=== PATIENT | male | born 1985 | race African-American/Black ===

== ENCOUNTER 2019-12-16 20:00 | Emergency (ER) | payer OTHER, SELFPAY ==
[2019-12-16 20:01] VITALS: BP 110/66; PULSE 72; RESP 20; TEMP 37.1; O2SAT 98
--- NOTE | 2019-12-16 22:11 | ED.HEATRA ---
HPI - Head Injury General Chief complaint: Head Injury Stated complaint: head injury Time Seen by Provider: 12/16/19 22:05 History of Present Illness HPI Narrative: Patient presents with his girlfriend for head injury today. He was at work with 2 men in a truck. 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 His girlfriend was worried because it was slightly red. He initially had pain in the site and had the sensation of seeing stars. He had no loss of consciousness. He said his pain is 5 out of 10. He was on his phone when I came into the room. He has no medical problems. His only surgery is circumcision. He denies smoking drinking and drug. Complaint: head injury Onset (ago): hour(s) Mechanism of Injury: other (Hit his head on a bar) Place: work Loss of Consciousness: no Location of injury: other ([place]) Severity: mild Severity scale (1-10): 5 Radiation: none Other Injuries: none Associated symptoms: denies other symptoms Related Data Home Medications Medication Instructions Recorded Confirmed No Home Medications 12/16/19 12/16/19 Allergies Allergy/AdvReac Type Severity Reaction Status Date / Time No Known Allergies Allergy Verified 12/16/19 20:04 Review of Systems Review of Systems: Narrative: CONSTITUTIONAL: Denies fever, chills, or sweats. EYES: Denies visual changes, redness, or discharge. ENT: Denies rhinorrhea, congestion, sore throat, or otalgia. CARDIOVASCULAR: Denies chest pain, palpitations, or edema. RESPIRATORY: Denies cough or dyspnea. GASTROINTESTINAL: Denies abdominal pain, nausea, vomiting, or diarrhea. GENITOURINARY: Denies dysuria or hematuria. SKIN: Denies rash or itching. MUSCULOSKELETAL: Denies back pain, joint pain, or myalgia. NEUROLOGIC: Denies headache, numbness, or weakness. . All systems reviewed & are unremarkable except as noted in HPI and below PMFSH Past Medical History Medical History Closed head injury Surgical History Surgical History (Updated 12/16/19 @ 22:13 by Christie Ware MD) History of circumcision Social History Social History (Updated 12/16/19 @ 22:13 by Christie Ware MD) Smoking status: Never smoker Alcohol intake: never Substance use: never Exam Narrative: Exam Narrative: GENERAL: Well-appearing, well-nourished, and in no acute distress. HEAD: Normocephalic, 1 cm swelling on the top of the head, nontender to palpitation. EYES: PERRLA and EOMI. ENT: Nares clear, no rhinorrhea or epistaxis. Mucous membranes moist. NECK: Supple. CHEST: Clear to auscultation. No respiratory distress. HEART: Regular rate and rhythm. No murmur heard. Normal peripheral pulses. ABDOMEN: Soft, nontender, nondistended, normal active bowel sounds. EXTREMITIES: Normal range of motion. No edema. SKIN: Warm, dry, no rash. NEURO: No focal deficits. Alert and oriented x3. PSYCH: Normal mood and affect. Const: General: no acute distress and alert Orientation/consciousness: patient oriented x3 Course Vital Signs Vital signs: Vital Signs Temperature 98.8 F 12/16/19 20:01 Pulse Rate 72 12/16/19 20:01 Respiratory Rate 20 12/16/19 20:01 Blood Pressure 110/66 12/16/19 20:01 Pulse Oximetry 98 12/16/19 20:01 Temperature 98.8 F 12/16/19 20:01 Pulse Rate 72 12/16/19 20:01 Respiratory Rate 20 12/16/19 20:01 Blood Pressure 110/66 12/16/19 20:01 Pulse Oximetry 98 12/16/19 20:01 MDM - Head Injury Medical Records Attestation: I reviewed the patient's medical records. Discharge Plan Discharge Clinical Impression: Closed head injury Qualifiers: Encounter type: initial encounter Qualified Code(s): S09.90XA - Unspecified injury of head, initial encounter Patient Disposition: Home, Self-Care Condition: Stable Instructions: Head Injury (ED) Prescriptions: No Action No Home Medications RF: 0 Follow
[2019-12-16] MEDS: ACETAMINOPHEN 325 MG TABLET 650 MG PO (22:15)
[2019-12-16 22:22] VITALS: BP 148/83; PULSE 71; RESP 16; TEMP 36.9; O2SAT 99
== END 2019-12-16 22:23 | disposition home or self-care (01) ==
PROVIDERS: Emergency Provider Emergency Medicine
DX: S09.90XA Unspecified injury of head, initial encounter (principal); W22.09XA Striking against other stationary object, initial encounter
CPT/HCPCS: 99282; A9270